=== PATIENT | female | born 1990 | race African-American/Black ===

== ENCOUNTER 2025-04-27 18:11 | Emergency (ER) | payer MEDICAID ==
[~2025-04-27] VITALS: Ht 167.6 cm; Wt 99.0 kg
[2025-04-27 18:17] VITALS: BP 161/92; TEMP 36.8; O2SAT 99
[2025-04-27 18:18] VITALS: PULSE 85; RESP 16; O2SAT 99
== END 2025-04-27 22:02 | disposition left against medical advice (07) ==
LOC: ER 18:20
DX: R51.9 Headache, unspecified (principal); Z53.21 Procedure and treatment not carried out due to patient leaving prior to being seen by health care provider
CPT/HCPCS: Z7610; A6449; 99283; A4606

== ENCOUNTER 2025-05-01 18:49 | Emergency (ER) | payer MEDICAID ==
[~2025-05-01] VITALS: Ht 167.6 cm; Wt 100.0 kg
[2025-05-01 18:56] VITALS: O2SAT 99
[2025-05-01] MEDS: METHOCARBAMOL 500MG TABLET PO ONE (19:23)
[2025-05-01] MEDS: KETOROLAC 30MG/ML VIAL IM ONE (19:23)
[2025-05-01 19:33] LABS: BASOPHILS % 1.8 % (0.0-2.0); EOSINOPHILS % 4.5 % (0.0-5.0); HEMATOCRIT. 36.1 % (36.0-48.0); HEMOGLOBIN. 11.9 g/dL (12.0-16.0); LYMPHOCYTES % 35.5 % (20.0-50.0); MEAN PLATELET VOLUME 9.3 fl (7.4-10.4); MONOCYTES % 8.4 % (2.0-8.0); NEUTROPHILS % 49.8 % (40.0-76.0); PLATELET 317 x1000/uL (130-400); RED BLOOD CELL COUNT 4.12 mill/uL (4.2-5.4); RED CELL DISTRIBUTION WIDTH 14.3 % (11.6-14.6)
[2025-05-01 19:48] LABS: CREATININE 0.9 mg/dL (0.6-1.0)
[2025-05-01 19:49] LABS: B-HCG QUANTITATIVE 14 mIU/mL (<6); UREA NITROGEN BLOOD < 5 mg/dL (9-23)
[2025-05-01 19:50] LABS: ASPARTATE AMINOTRANSFERASE 34 IU/L (<34); BILIRUBIN DIRECT < 0.1 mg/dL (<=3.0)
[2025-05-01 19:51] LABS: BILIRUBIN TOTAL 0.4 mg/dL (0.1-1.0); PROTEIN TOTAL 7.4 g/dL (6.0-8.3)
[2025-05-01 20:55] LABS: CLARITY URINE CLEAR (CLEAR); COLOR URINE YELLOW (YELLOW); GLUCOSE URINE NEGATIVE (NEGATIVE); KETONES URINE NEGATIVE (NEGATIVE); LEUKOCYTE ESTERASE URINE NEGATIVE (NEGATIVE); NITRITE URINE NEGATIVE (NEGATIVE); OCCULT BLOOD URINE TRACE (NEGATIVE); PH URINE 6.0 (4.5-8.0); PROTEIN URINE NEGATIVE (NEGATIVE); SPECIFIC GRAVITY URINE 1.020 (1.005-1.030); UROBILINOGEN URINE 1.0 E.U./dL (0.2-1.0)
[2025-05-01 21:16] LABS: BACTERIA URINE NONE SEEN; RBC URINE 0-2 /hpf (0-2); SQUAMOUS EPITHELIAL CELL URINE FEW /lpf (RARE/1+); WBC URINE 0-2 /hpf (0-2)
[2025-05-01 21:30] VITALS: BP 173/100; PULSE 60; RESP 20; TEMP 36.9; O2SAT 97
[2025-05-01] MEDS ORDERED: IBUP-1455 MT (21:37)
[2025-05-01] MEDS ORDERED: METH-653 MT (21:37)
[2025-05-01] MEDS ORDERED: LIDO700A30 TP (21:37)
== END 2025-05-01 21:57 | disposition home or self-care (01) ==
LOC: ER 18:49
DX: S33.5XXA Sprain of ligaments of lumbar spine, initial encounter (principal); I10 Essential (primary) hypertension; R10.2 Pelvic and perineal pain; Z98.890 Other specified postprocedural states; X58.XXXA Exposure to other specified factors, initial encounter; Y93.89 Activity, other specified; Y92.89 Other specified places as the place of occurrence of the external cause; Y99.8 Other external cause status
CPT/HCPCS: 80076; 80048; 81003; 84702; 83690; 83735; 85025; 36415; 96372; 99283; J1885; Z7610; A4606

== ENCOUNTER 2025-05-23 07:45 | Emergency (ER) | payer MEDICAID ==
[~2025-05-23] VITALS: Ht 167.6 cm; Wt 95.0 kg
[~2025-05-23 07:45] MED LIST: IBUP-1455 MT; LIDO700A30 TP; METH-653 MT
[2025-05-23 07:48] VITALS: O2SAT 100
[2025-05-23] MEDS ORDERED: DOXYCYCLINE HYCLATE 100MG CAPSULE PO ONE (08:30)
[2025-05-23] MEDS ORDERED: CEFTRIAXONE SODIUM 500MG VIAL IM ONE (08:30)
[2025-05-23] MEDS ORDERED: FLUCONAZOLE 100MG TABLET PO ONE (08:45)
[2025-05-23] MEDS ORDERED: FLUC150T46 MT (08:48)
[2025-05-23] MEDS ORDERED: FLUCONAZOLE 150MG TABLET PO NR (09:00)
[2025-05-23 09:03] VITALS: BP 131/80; PULSE 83; RESP 15; TEMP 36.7; O2SAT 100
== END 2025-05-23 09:04 | disposition home or self-care (01) ==
LOC: ER 07:54
DX: B37.9 Candidiasis, unspecified (principal); I10 Essential (primary) hypertension
CPT/HCPCS: 99283

== ENCOUNTER 2025-05-26 19:20 | Emergency (ER) | payer MEDICAID ==
[~2025-05-26] VITALS: Ht 167.6 cm; Wt 95.0 kg
[~2025-05-26 19:20] MED LIST changes: +FLUC150T46 MT
[2025-05-26 19:39] VITALS: O2SAT 99
[2025-05-26] MEDS ORDERED: AMLO10TA80 MT (19:43)
[2025-05-26 20:37] LABS: BASOPHILS % 0.5 % (0.0-2.0); EOSINOPHILS % 3.3 % (0.0-5.0); HEMATOCRIT. 33.3 % (36.0-48.0); HEMOGLOBIN. 11.1 g/dL (12.0-16.0); LYMPHOCYTES % 41.0 % (20.0-50.0); MEAN PLATELET VOLUME 9.8 fl (7.4-10.4); MONOCYTES % 8.6 % (2.0-8.0); NEUTROPHILS % 46.6 % (40.0-76.0); PLATELET 171 x1000/uL (130-400); RED BLOOD CELL COUNT 3.90 mill/uL (4.2-5.4); RED CELL DISTRIBUTION WIDTH 14.7 % (11.6-14.6)
[2025-05-26 20:48] LABS: CREATININE 1.0 mg/dL (0.6-1.0); INR 1.0
[2025-05-26 20:49] LABS: HCG SCREEN NEGATIVE; UREA NITROGEN BLOOD 10 mg/dL (9-23)
[2025-05-26 20:50] LABS: ASPARTATE AMINOTRANSFERASE 14 IU/L (<34)
[2025-05-26 20:51] LABS: B-HCG QUANTITATIVE < 1 mIU/mL (<6); BILIRUBIN DIRECT < 0.1 mg/dL (<=3.0); BILIRUBIN TOTAL 0.2 mg/dL (0.1-1.0); PROTEIN TOTAL 6.5 g/dL (6.0-8.3)
[2025-05-26] MEDS: POTASSIUM CHLORIDE 20MEQ/PACKET PO NR (22:44)
[2025-05-27 01:04] VITALS: BP 115/66; PULSE 58; RESP 10; TEMP 36.7; O2SAT 99
== END 2025-05-27 01:14 | disposition home or self-care (01) ==
LOC: ER 19:20
DX: N83.202 Unspecified ovarian cyst, left side (principal); N93.9 Abnormal uterine and vaginal bleeding, unspecified; G40.909 Epilepsy, unspecified, not intractable, without status epilepticus; I10 Essential (primary) hypertension; R10.22 Pelvic and perineal pain left side
CPT/HCPCS: 36415; 76830; 76856; 80048; 80076; 84702; 84703; 85025; 86850; 86900; 99285; A4606